=== PATIENT | male | born 1995 | race Caucasian/White ===

== ENCOUNTER 2023-04-30 08:54 | Emergency (ER) | payer SELFPAY ==
[2023-04-30] MEDS ORDERED: predniSONE 20 MG TAB ONE (11:09)
[2023-04-30] MEDS ORDERED: Ketorolac Tromethamine 30 MG/ML VIAL ONE (11:09)
[2023-04-30] MEDS ORDERED: traMADol HCl 50 MG TAB ONE (11:10)
[2023-04-30] MEDS ORDERED: Cyclobenzaprine 10 MG TAB ONE (11:10)
== END 2023-04-30 11:25 | disposition home or self-care (01) ==
LOC: CSHERS 08:54
DX: S33.5XXA Sprain of ligaments of lumbar spine, initial encounter (principal); X50.0XXA Overexertion from strenuous movement or load, initial encounter
CPT/HCPCS: 96372; 99283; J1885; J7512

== ENCOUNTER 2024-07-10 16:49 | Emergency (ER) | payer SELFPAY ==
[2024-07-10] MEDS ORDERED: Ketorolac Tromethamine 30 MG (1 mL) VIAL ONE (17:31)
[2024-07-10 18:19] LABS: #Basophils 0.04 10x3/uL (0.0-0.2); #Monocytes 0.55 10x3/uL (0.0-1.1); %Basophils 0.4 % (0.0-2.0); %Lymphocytes 13.4 % (18.0-47.0); %Monocytes 5.3 % (0.0-10.0); %Neutrophils 79.6 % (40.0-75.0); Hematocrit 42.4 % (38.8-50.0); Hemoglobin 13.7 g/dL (13.5-17.5); Mean Corpuscular HGB CONC 32.3 g/dL (32.0-36.0); Mean Corpuscular Volume 86.7 fL (81.2-95.1); Mean Platelet Volume 10.5 fL (7.4-10.4); Platelet Count 242 10x3/uL (150-450); RBC Distribution Width 13.2 % (11.5-14.5); Red Blood Cell (RBC) Count 4.89 10x6/uL (4.32-5.72); White Blood Cell (WBC) Count 10.4 10x3/uL (3.5-10.5)
[2024-07-10 18:31] LABS: ALT (SGPT) 15 U/L (8-55); AST (SGOT) 19 U/L (5-34); Albumin 4.2 g/dL (3.5-5.0); Alkaline Phosphatase 97 U/L (40-110); Anion Gap 13 mmol/L (10-20); BUN (Urea Nitrogen) 8 mg/dL (8.9-20.6); Bilirubin, Total 1.4 mg/dL (0.2-1.2); Calc. Creatinine Clearance 0 mL/min (70-130); Calcium 9.6 mg/dL (7.8-10.44); Carbon Dioxide 26 mmol/L (22-29); Chloride 104 mmol/L (98-107); Estimated GFR 115; Globulin 2.5 g/dL (2.4-3.5); Glucose 87 mg/dL (70-105); Lipase 5 U/L (8-78); Magnesium 1.9 mg/dL (1.6-2.6); Potassium 4.4 mmol/L (3.5-5.1); Protein, Total 6.7 g/dL (6.0-8.3); Sodium 139 mmol/L (136-145)
[2024-07-10 18:35] LABS: Troponin I Less than 0.010 ng/mL (< 0.028)
[2024-07-10] MEDS ORDERED: Mag-Al 1200 mg/1200 mg/30 ML UDCUP ONE (18:37)
[2024-07-10] MEDS ORDERED: Famotidine 20 MG TAB ONE (18:38)
[2024-07-10] MEDS ORDERED: Lidocaine Viscous Sol 2% 15 ml UD Cup ONE (18:38)
== END 2024-07-10 20:38 | disposition home or self-care (01) ==
LOC: CSHERS 16:49
DX: R07.81 Pleurodynia (principal)
CPT/HCPCS: 71045; 80053; 83690; 83735; 84484; 85025; 87081; 87430; 93005; 96372; J1885